=== PATIENT | female | born 2005 | race Two or more races ===

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

== ENCOUNTER 2025-04-05 15:28 | Emergency (ER) | payer OTHER, SELFPAY ==
[2025-04-05 15:42] VITALS: BP 141/85; PULSE 69; RESP 18; TEMP 36.3; O2SAT 99; BMI 22.6
--- NOTE | 2025-04-05 15:45 | ED_ITS ---
HPI - General Adult General Chief complaint: Extremity Injury, Upper Stated complaint: L hand lac Time Seen by Provider: 04/05/25 16:35 Source: patient and family (patient's mother) Mode of arrival: ambulatory Limitations: no limitations History of Present Illness ED Provider: Ashlyn Whyte PA-C HPI narrative: Patient is a 19 year old assigned female at with no reported medical history presenting to the emergency department today with a left hand laceration. Patient states that she was attempting to open a package of chicken with a knife when she accidentally cut her left hand. Patient states that she is not sure when the last time she got her tetanus shot was. Patient denies any other complaints at this time. Related Data Previous Rx's ?Medication ?Instructions ?Recorded amoxicillin 875 mg-potassium 1 tab PO BID 5 days #10 t abs 04/05/25 clavulanate 125 mg tablet Allergies Allergy/AdvReac Type Severity Reaction Status Date / Time No Known Allergies (No Known Allergy Verified 04/05/25 15:45 Allergies*) Review of Systems 2 Constitutional: Constitutional: Reports as per HPI Eyes: Eyes: Reports as per HPI ENT: Reports as per HPI Cardiovascular: Cardiovascular: Reports as per HPI Respiratory: Respiratory: Reports as per HPI Gastrointestinal: Gastrointestinal: Reports as per HPI Genitourinary: Genitourinary: Reports as per HPI Musculoskeletal: Musculoskeletal: Reports as per HPI Integumentary/Breasts: Skin/Breast: Reports as per HPI Neurologic: Reports as per HPI Psychiatric: Psychiatric: Reports as per HPI Endocrine: Endocrine: Reports as per HPI Hematologic/Lymphatic: Hematologic/Lymphatic: Reports as per HPI Allergic/Immunologic: Allergic/Immunologic: Reports as per HPI [facility] Past Medical History Attestation statement: The following information was validated with the patient. (all information validated with the patient's mother) Source: old records reviewed, obtained from family (patient's mother provided additional history and confirmed the history provided by the patient) and nursing notes reviewed Medical History No known health problems Social History Social History Advance Directives: No Advance Directives Information Provided: No Do you have a plan to hurt others: No Plan Physical Exam ED Vital Signs: Vital Signs - 24 hr 04/05/25 15:42 04/05/25 17:10 Temperature 97.4 F 98.6 F Pulse Rate 69 78 Respiratory Rate 18 16 Blood Pressure 141/85 H 109/73 Pulse Oximetry 99 98 Oxygen Delivery Method Room Air Room Air BMI result Body Mass Index 22.6 Const General: cooperative, no acute distress, alert and awake Nutritional Appearance: well nourished Orientation/consciousness: patient oriented x3 HENMT Head: Yes normal to inspection and Yes atraumatic Ears: hearing grossly normal bilaterally and external ears normal General nose exam: Normal external nose present, no nasal discharge noted and no epistaxis Face and sinus: Yes normal facial exam, No abrasion and No laceration Mouth: Normal oral and palatal mucosa present, no drooling and no muffled voice Eyes General: appearance normal, both eyes and all related structures Periorbital: periorbital findings normal Eyelids: Yes eyelids normal Conjunctivae: conjunctivae normal Pupils: Equal, round and reactive pupils present EOM: EOMs intact bilaterally Neck Neck: Yes normal visual inspection and Yes full ROM Resp Effort & Inspection: normal respiratory effort and able to speak in complete sentences Neuro General: patient oriented x3, moves all extremities and CN's II-XI intact bilaterally Cranial nerves: Yes Equal, round and reactive pupils present Cognition (Neuro): normal cognition Extrem Other: General: Yes full ROM and Yes capillary refill normal Psych Appearance: grossly normal Mental Status: mental status grossly normal Affect: normal affect Attitude: cooperative Thought process: Normal thought process present Thought content: Normal thought content present Insight: Good insight present (Psych) Course Course Course Narrative: Rapid medical examination performed in triage by Ashlyn Whyte PA-C: Patient is a 19 year old assigned female at presenting to the emergency department with a left hand laceration. Patient states that she was cutting open a pack of chicken when she cut her left hand. Detailed physical exam and review of systems are deferred to the primary school teacher librarian. Patient placed back in the waiting room pending room availability. Medications Administered Discontinued Medications Generic Name Dose Route Start Last Admin Trade Name Freq PRN Reason Stop Dose Admin Lidocaine/Epinephrine/Tetracaine 1 ml 04/05/25 16:36 04/05/25 16:56 Lidocaine/Racepinep/Tetracaine 3 Ml Gel.Pf.Penny TOPICAL 04/05/25 16:37 1 ml ONCE ONE Administration Procedures Laceration Left hand: Site: hand Side (If applicable): left Size (cm): 2 Description: linear Depth: simple, single layer Local Anesthetic: other anesthetic (LET) Pre-repair: irrigated extensively and deep structures intact Skin layer closed with: Prolene Size (cm): 6-0 Number of sutures: 5 Technique: simple, interrupted Medical Decision Making Medical Decision Making MDM Narrative: Patient is a 19 year old assigned female at with no reported medical history presenting to the emergency department today with a left hand laceration. Patient's physical exam was as noted in the physical exam portion of this note. I explained my physical exam findings to the patient and the patient's mother. I answered all questions asked by the patient and the patient's mother. Patient's left hand laceration was repaired, without incident, per procedure note. Patient's PMS was intact prior to and after laceration repair. Given the mechanism of injury and the location of injury - patient treated with prophylactic antibiotic. I stressed the importance of the patient taking her medication as directed (either prescribed or as the over the counter packaging recommends). I stressed the importance of the patient following up with her primary care provider. I stressed the importance of the patient returning to the emergency department immediately if her symptoms were to worsen or if she were to develop any dizziness, shortness of breath, difficulty breathing, chest pain, blurry vision, loss of vision, nausea, vomiting, abdominal pain, fever, chills, back pain, or any other complaints. Patient and the patient's mother verbalized agreement and understanding with this treatment plan and discharge. Differential Diagnosis Differential Diagnoses: The differential diagnosis associated with the presentation includes Left hand laceration Left hand injury Admission/Observation Consideration of admission/observation: Escalation of care including admission/observation considered Patient would have been admitted to the hospital had her clinical presentation warranted hospital admission. Independent Historian Clinical information obtained from an independent historian. History obtained from or confirmed by: Parent (patient's mother provided additional history and confirmed the history provided by the patient.) Tests considered The following testing was considered but not selected: I considered obtaining an x-ray of the left hand / wrist however, the patient's current clinical presentation and mechanism of injury did not warrant this. Prescription Management I considered prescription management with: Antibiotic (given mechanism of injury and location of injury - patient prescribed a prophylactic antibiotic. ) Discharge Plan Discharge Clinical Impression: Laceration of hand Qualifiers: Encounter type: initial encounter Foreign body presence: without foreign body L aterality: left Qualified Code(s): S61.412A - Laceration without foreign body of left hand, initial encounter Patient Disposition: Home, Self-Care Instructions: Care For Your Stitches (DC), Laceration (DC) Additional Instructions: Your laceration was repaired with (5) sutures. Given the mechanism of injury - you were prescribed a 5 day course of prophylactic antibiotic. Please take this as prescribed and be aware it can cause GI upset as well as make certain controls less effective - so if you are sexually active, use an additional method of contraception. It is normal for the wound to ooze blood over the next few hours. IF the bleeding becomes excessive or you become concerned, please do not hesitate to return to the emergency department. Have these sutures removed in 7-10 days. They can be removed by your primary care provider, at any urgent care by their provider, or at any emergency department by any of their providers. Do NOT soak the affected area. Avoid ALL bodies of water - this including pools, lakes, barrios, oceans, streams, puddles, etc. until your sutures have been removed and the wound has F ULLY healed (no open areas, no scabbing). IF you are concerned about scarring, once the sutures have been removed and the scabbing has fallen away - apply sunscreen to the area every day for 1 full year . IF you are prescribed home medications and/or you are taking over the counter medications at home - it is very important you continue to do so as prescribed / directed unless told otherwise by a healthcare provider. Follow up with your primary care provider. Do your best to stay well hydrated and rest. Return to the emergency department immediately if your symptoms worsen or if you develop any numbness, tingling, dizziness, shortness of breath, difficulty breathing, chest pain, blurry vision, loss of vision, nausea, vomiting, abdominal pain, fever, chills, back pain, or any other complaints. Please see the information below about our Patient Portal. If you are not yet enrolled in the [facility] Patient Portal, you will receive an enrollment email invitation following your visit to any [facility] setting. You may also self-enroll in the Patient Portal by visiting our website: [email or web address] The following information is required to access the Patient Portal: - Your [facility] Medical Record Number - Your personal home email address (must match what is in your electronic medical record, Registration staff can assist with this) - Name - Date of Capabilities of the Patient Portal: - Message some providers - View upcoming appointments - Access your health summary, medical history, and visit history - View current conditions and allergies - View procedure and lab results - View your medications, including guidelines, side effects, and precautions - Complete pre-appointment questionnaires requested by your provider - Ready summary reports of your office visits and procedures To access the Patient Portal Mobile Penny, follow these directions: - Search [employer] in the Penny Store or [employer] Store - Download the Penny - Search for [facility] - Enter your login/password Prescriptions: New amoxicillin-pot clavulanate 875-125 mg tablet 1 tab PO BID 5 Days Qty: 10 0RF Referrals: Kim Kevin NP [Primary Care Provider, Family Practice] Discharge Date/Time: 04/05/25 17:44 Print Language: Puerto Rican
[2025-04-05] MEDS: Lidocaine/Racepinep/Tetracaine 3 ML GEL.PF.APP 1 ML TOPICAL (16:56)
[2025-04-05 17:10] VITALS: BP 109/73; PULSE 78; RESP 16; TEMP 37; O2SAT 98
--- OUTSIDE RECORDS SUMMARY | 2025-04-05 19:55 | XMS_ITS | Clinical Summary ---
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 30 tablet 5 08/17/2023 Active budesonide-form oterol 160-4.5 mcg/actuation inhalerIndicati ons:Subacute cough Inhale 2 puffs into the lungs 2 (two) times a day. 10.2 g 09/23/2023 Active levonorgestrel and ethynyl estradiol (SEASONIQUE) 0.15 mg-30 mcg (84)/10 mcg (7) 3MPk Take 1 tablet by mouth daily. 90 tablet 1 02/07/2024 Active Active Problems Problem Noted Date Diagnosed Date Vaginal itching 02/24/2024 Assessment & Plan (02/24/2024 11:06 AM EDT): Likely a yeast infection secondary to antibiotic use. I have asked her to get a repeat GC to ensure resolution of her prior infection. She understands and agrees. Follow up if symptoms are not improving. Chronic bilateral low back pain without sciatica 02/25/2023 Assessment & Plan (03/11/2023 10:12 AM EST): Leroy notes that the lower back pain has improved-she completed her antibiotics for her recent UTI. I will have her go for a urine check for clearance today and I will update her with the results. She understands and agrees. Assessment & Plan (02/25/2023 1:40 PM EDT): Leroy states that she has ongoing low back pain. I will have her go for an x-ray and I will update her with the results. She has been undergoing some exercises however they have not been helpful. I will also have her go for a further work-up regarding labs as well as a urinalysis with reflex culture. I will update her with the results. Follow-up with PCP if there are any other issues or concerns. Chronic bilateral thoracic back pain 02/25/2023 Assessment & Plan (03/11/2023 10:13 AM EST): Leroy has ongoing thoracic pains. I reviewed her x-ray in the office today showing no abnormalities and I gave her exercises regarding stretches and strengthening of the paraspinal musculature to be done at home at least 3 days a week and hopefully 4 days a week. I also gave guidance regarding hydration with water and heat to the site. She will call if this gets worse or if there are any other issues or concerns. She understands and agrees. Assessment & Plan (02/25/2023 1:40 PM EDT): Leroy has ongoing mid back pain. I will further work this up with diagnostic test-x-rays as well as labs and urinalysis with culture. I will update her with the results. I advised her to call if this gets worse or if there are any other issues or concerns. She understands and agrees. Annual physical exam 06/16/2022 Assessment & Plan (02/07/2024 1:57 PM EDT): No concerning findings on exam, follow up in 1 year, sooner for acute concerns. She would like to get STD and tests now that she has been sexually active. Couseled about safe sex practices. She would like to start control. Had been given it a year ago but never started. We discussed options, risk/benefits, and methods. She would like the 3 month OPC. Discussed quick start and cycle start options. She will follow up with concerns. Assessment & Plan (06/16/2022 4:55 PM EST): Ana Vee is a 16 y.o. year old female presenting for their annual well child check. I reviewed the electronic health form filled out. Routine guidance was given. They will follow up in a year for their annual well child check. Personal history of COVID-19 02/06/2021 Primary insomnia 03/28/2018 Overview (03/28/2018): Followed at [facility] Assessment & Plan (08/17/2023 3:18 PM EDT): Leroy has ongoing insomnia-I refilled her amitriptyline at today's visit. She has that this is helpful. I wrote a letter for school as well stating that she has insomnia. Follow-up as needed. She understands and agrees. Assessment & Plan (10/21/2021 9:07 AM EDT): Leroy notes that the amitriptyline 50 mg works a little too well. I dialed this back down to 25 mg once at night as needed. Guidance given. She will call if there are any other issues or concerns. This med was sent into her pharmacy today. She will call if there are any other issues or concerns. Assessment & Plan (09/23/2021 9:58 AM EDT): Leroy continues to have issues with sleep however she did sleep better on 30 mg. Increase this to 50 mg at night-once a night and to call if there are any issues or concerns with this or side effects-she has not had any side effects thus far. Follow-up in a month. She will call if there are any other issues or concerns. She understands and agrees. Assessment & Plan (08/26/2021 3:05 PM EDT): Leroy continues to have issues with insomnia. She does not have a sleep routine yet but we did discuss this and we talked about healthy ways to help with sleep and getting her body ready for sleep- I informed her to not eat big meals 2 hours before going to bed and no electronics an hour before bedtime. I did inform her that reading a book might be a good idea. I reviewed her previous medications for this and she has not tried amitriptyline yet. We start this medication 1 tablet at night-side effects discussed. Follow-up in a month. She will call if there are any other issues or concerns. She understands and agrees. Resolved Problems Problem Noted Date Diagnosed Date Resolved Date Subacute cough 09/23/2023 02/07/2024 Assessment & Plan (09/23/2023 5:19 PM EDT): Leroy presents for a cough-starting 2 weeks ago. I suspect a viral upper respiratory infection-I wrote for a steroid-based inhaler after listening to her lungs today-all around tight. Advised her to rinse her mouth out with a salt water rinse after each use. I informed her to call if this is not improving at which point I would order an x-ray for further investigation. I advised her to stop smoking/vaping. I informed her to call if there are any other issues or concerns. She understands and agrees. Sore throat 09/23/2023 02/07/2024 Assessment & Plan (09/23/2023 5:19 PM EDT): Leroy presents with a sore throat mainly from the cough. Her rapid strep test was negative today in the office. Please see plan call for further guidance. Generalized abdominal pain 08/17/2023 1 Assessment & Plan (08/17/2023 3:19 PM EDT): Leroy presents with generalized abdominal pain-nausea vomiting, decreased p.o. intake. I will investigate this with labs and I will update her with the results. Also ordered an ultrasound. I informed her to call if her symptoms get worse or if there are any other issues or concerns. I gave guidance regarding hydration and certain foods. Follow-up with PCP as needed. She understands and agrees. Nausea and vomiting 08/17/2023 02/07/20 24 Assessment & Plan (08/17/2023 3:19 PM EDT): Leroy presents for intermittent nausea and vomiting. Is been going on more recently. I ordered lab work today and I will update her with results. I also ordered a an ultrasound to rule out appendicitis. I informed her to call if there are any other issues or [id number] with PCP as needed. She understands and agrees. Subacute cough 02/25/2023 09/23/2023 Assessment & Plan (02/25/2023 1:38 PM EDT): Leroy presents for an ongoing cough. She was diagnosed with the flu earlier this week-Tuesday. Her symptoms are overall improving but she still continues to have a cough. Her lung sounds are normal. I wrote for Moises Rocha-to be taken as directed. She will call if her symptoms get worse or if there are any other issues or concerns. I wrote a letter for her school today. She understands and agrees. Influenza 02/25/2023 02/07/2024 Assessment & Plan (02/25/2023 1:39 PM EDT): Leroy was diagnosed with the flu this past Tuesday. She is overall feeling a little better but she still has a cough. I wrote a letter for school. Follow-up with the symptoms worsen or if they do not improve. She understands and agrees. Syncope and collapse 11/30/2022 Assessment & Plan (11/30/2022 3:34 PM EDT): Leroy presents with her mom for an episode of syncope and collapse this past Tuesday. She informs me that she is not eating throughout the day but only eats at night. I advised her to eat 3 square meals a day with snacks in between and to stay well-hydrated. I will be trying to obtain the labs and EKG done at [facility] but I and not able to see them today. I ordered repeat lab work to be done if her symptoms do not improve by next week. She will call if there are any other issues or concerns. She understands and agrees. Other fatigue 06/16/2022 02/07/2024 Assessment & Plan (06/16/2022 5:12 PM EST): Leroy has been having more fatigue recently. We did discuss nutrition in the office today. I will have him go for above lab work and I will update him with the results. She will call if there are any other issues or concerns. She understands and agrees. OCP (oral contraceptive pills) initiation 06/16/2022 02/07/2024 Assessment & Plan (06/16/2022 5:12 PM EST): Leroy is thinking about intercourse but she has not had intercourse yet. She would like to be on something to help prevent a . I wrote for the above OCP- to be taken as directed. Guidance given. Side effects discussed. She will call if there are any issues or concerns. She notes that she will be talking with her dad about this as she feels more comfortable talking to him about this and her mom. I did advise open communication as best. I also gave guidance regarding safe sexual practices with condoms to help decrease STDs. She will call if there are any other issues or concerns. She understands and agrees. Right shoulder strain, initial encounter 10/21/2021 02/07/2024 Assessment & Plan (10/21/2021 9:06 AM EDT): Leroy presents for right shoulder strain and I gave her exercises to start on in the office. I also gave her guidance regarding heat and to stay well-hydrated. She will take Tylenol/Motrin-with guidance- as needed. She will call if there are any other issues or concerns. She understands and agrees. Screening for condition 09/23/2021 1012/2023 Assessment & Plan (11/30/2022 3:35 PM EDT): Leroy is due for lab work-she will get this done and I will update her with the result. Assessment & Plan (09/23/2021 9:58 AM EDT): Leroy is due for a GC/chlamydia urine screen and she will get this done today-I will update her with the results. She understands and agrees. Need for meningococcus vaccine 09/23/2021 02/07/2024 Assessment & Plan (09/23/2021 9:58 AM EDT): Leroy is due for a meningitis vaccine-this was done today in the office as her mom and the patient were agreeable. No complications. Sprain of anterior talofibul ar ligament of left ankle 02/13/2021 04/22/2021 Assessment & Plan (03/11/2021 4:23 PM EST): Leroy was diagnosed with a sprain of the left ankle. This is the third time she sprained his ankle this year. Guidance given. I put a referral into PT. Her mom notes that she had an x-ray done at [facility] and was negative. I wrote a note for gym to be out for the next week and a half. She will wear her brace as directed. I also gave guidance regarding rice therapy. She will call if there is any other issues or concerns. She understands and agrees. Assessment & Plan (02/13/2021 3:56 PM EDT): Leroy had a second fall and twisted her left ankle 2 days after the initial this past Tuesday. I informed her that the ankle is sprained and I advised her to undergo some exercise-I copied and gave her some printouts of what she should be doing. She notes that she went to [facility] this past Tuesday and had x-rays and there is no fracture noted. She is wearing a brace and I advised her to use this until the weekend and then she is slowly wean out of this. She will call if things get worse or if this does not improve. She understands and agrees. Acute midline thoracic back pain 08/20/2020 04/22/2021 Assessment & Plan (08/20/2020 10:32 AM EDT): Leroy presents for upper back pain. This is likely secondary to stress-versus a musculoskeletal strain. I gave her guidance in the office. She was given paperwork for stretching exercises to be performed and I also advised for heat, NSAID use as needed, and to hydrate with water. I put an order in for an x-ray to evaluate the thoracic spine. I will update her with results. She will call if there is no improvement in the next few weeks. Or if things get worse. She understands and agrees. Encounters Date Type Department Care Team Description 04/01/2025 [facility] RISK SCORES SYSTEM GENERATED External System Generated Encounter [id number] [place] [id number] Unknown, Unknown, 01/28/2025 [facility] RISK SCORES SYSTEM GENERATED External System Generated Encounter [id number] [place] [id number] Unknown, Unknown, from Last 3 Months Immunizations Immunization Administration Dates Next Due DTaP 02/17/2010,04/27/2007 DTaP-Hep B-IPV 02/17/2006,2005,2005 HPV9 03/28/2018,03/21/2017 Hepatitis A, ped/adol, 2 dose 09/26/2008, 008 Hib, unspecified formulation 12/15/2006, 02/17/2006,2005,09/14 INFLUENZA, SPLIT VIRUS, TRIVALENT PF 02/07/2024 INFLUENZA, SPLIT VIRUS, TRIV ALENT W/ PRESERVATIVE IM 02/18/2016,07/17/2013,03/15/2012,01/26 IPV 02/17/2010 Influenza Quadrivalent MDCK w/Preservative IM 02/17/2019 Influenza Quadrivalent Pedia tric Preservative Free IM 04/16/2020 Influenza Quadrivalent Prese rvative Free IM 02/06/2021 Influenza Quadrivalent w/ Pr eservative IM 03/28/2018,02/09/2017,01/23/2014 Influenza Split (Incl. Purif ied Surface Antigen) 02/05/2009,02/24/2007,04/11/2006,02/17 Influenza quadrivalent nasal 01/29/2015 Influenza, whole 02/17/2010 MMR 02/23/2011,12/15/2006 Meningococcal MCV4P 09/23/2021,03/21/2017 Pneumococcal conjugate, PCV 7 12/15/2006 ,02/17/2006,2005,09/14 Polio, Unspecified Formulation 08/18/2006 Tdap 03/28/2018 Varicella 02/23/2011,08/18/2006 Family History Medical History Relation Comments Bipolar disorder Father Krtxojj-Ahngv-Pjdjp disease Maternal Grandmother Relation Status Comments Father Alive Maternal Grandmother Alive Mother Alive Social History Tobacco Use Types Packs/Day Years Used Date Smoking Tobacco: Unknown Smokeless Tobacco: Never Tobacco Cessation:Counseling Given: Not Answered Comments:Vaping daily Alcohol Use Standard Drinks/Week Comments Not Currently 0 (1 standard drink = 0.6 oz pur e alcohol) Child or Family Care Answer Date Record ed Do you have problems with on e of the following making it difficult for you to work, study, or receive health care? No 02/07/2024 Education Answer Date Recorded Are you interested in more education? Not on annemarie e 02/07/2024 Are you concerned about your learning, performance, or behavior in school? No 02/07/2024 No 02/07/2024 Yes 02/07/2024 Food Answer Date Recorded Within the past 6 months we worried whether our food would run out before we got money to buy more. Never True 02/07/2024 Within the past 6 months the food we bought just didn't last and we didn't have enough money to get more. Never True Residential Stability Answer Date Recor ded What is your housing situation today? I have chavez longo 02/07/2024 How many times have you move d in the past 12 months? Zero (I did not move) 02/07/2024 Paying for Meds Answer Date Recorded Do you have trouble paying for medicines? No 02/07/2024 Paying Utility Bills Answer Date Record ed Do you have trouble paying your heating or elect ricity bill? No 02/07/2024 Transportation Answer Date Recorded Has the lack of transportati on kept you from medical appointments or from getting medications? No 02/07/2024 Unemployment Answer Date Recorded Are you currently unemployed or working on a part-time or temporary basis, and looking for work? I choose not to answer 04/22/2021 Digital Access Answer Date Recorded No 02/07/2024 Yes 02/07/2024 Do you have reliable internet access at home? Ye s 02/07/2024 Do you have a device (e.g., phone, tablet, computer) with a working camera? Yes 02/07/2024 SNAP & WIC Answer Date Recorded Do you receive benefits from SNAP (the Supplemental Nutrition Assistance Program) or the Food Stamp Program? No 02/07/2024 SNAP is a free program that can help you and your family get access to healthy foods, nutrition classes, utility discounts, and more. Would you be interested in learning more? No 02/07/2024 Can we help you enroll in SNAP? Not on file 02/07/2024 Benefits received from WIC? Not on file 12/2023 WIC is a free program, interested in learning mo re? Not on file 02/07/2024 Can we help you enroll in WIC? Not on file 1 Comments Unknown Sex and Gender Information Value Date Recorded Sex Assigned at Not on file Legal Sex Female 4:46 PM EDT Gender Identity Not on file Sexual Orientation Not on file Last Filed Vital Signs Vital Sign Reading Time Taken Comments Blood Pressure 102/58 02/24/2024 10:27 AM EDT Pulse 62 02/24/2024 10:27 AM EDT Temperature 36.5 C (97.7 F) 02/24/2024 10:27 AM EDT Respiratory Rate 16 01/11/2024 9:38 AM EDT Oxygen Saturation 98% 02/24/2024 10:27 AM EDT Inhaled Oxygen Concentration - - Weight 47.6 kg (105 lb) 02/24/2024 10:27 AM EDT Height 154.9 cm (5' 1 ) 02/07/2024 1:22 PM EDT Body Mass Index 19.84 02/07/2024 1:22 PM EDT Body Mass Index Percentile 28.31% 02/24/2024 10: 27 AM EDT Growth Chart: CDC (Girls, 2- 20 Years) Plan of Treatment Health Maintenance Due Date Last Done Comments SMOKING Hx and SMOKELESS TOBACCO SCREENING 2018 MENINGOCOCCAL VACCINES (B) (1 of 2 - Standard) 2021 INFLUENZA VACCINE (#1) 2024 , 02/06/2021, 04/16/2020, Additional history exists COVID-19 VACCINE ( season) 2024 09/13/2021, 08/23/2021 DEPRESSION SCREENING 02/06/2025 02/07/2024, 12/01/19 DEVELOPMENTAL/BEHAVIORAL SCREENING (PHQ, PSC, or SWYC) 02/06/2025 02/07/2024, 11/30/2022 BMI ASSESSMENT 02/23/2025 02/24/2024 CHLAMYDIA SCREENING 02/23/2025 02/24/2024, 02/07/2024, 01/11/2024, Additional history exists COMBINED DTaP,Tdap,Td (7 - Td or Tdap) 03/28/2028 03/28/2018, 02/17/2010, 04/27/2007, Additional history exists HEPATITIS B VACCINES Completed 02/17/2006, 2005, 2005 HIB VACCINES Completed 12/15/2006, 01/30, 2005, Additional history exists PNEUMOCOCCAL VACCINES (0-49 years) Aged Out 12/15/2006, 02/17/2006, 2005, Additional history exists No longer eligible based on patient's age to complete this topic HEPATITIS A VACCINES Completed 09/26/2008, 09/21/19 MMR VACCINES Completed 02/23/2011, 12/15/2006 VARICELLA VACCINES Completed 02/23/2011, 08/18/2006 HPV VACCINES Completed 03/28/2018, 03/21/2017 MENINGOCOCCAL VACCINES (ACWY) Completed 09/23/2021, 03/21/2017 ADOLESCENT UNIVERSAL LIPID SCREENING Completed 02/25/2023 HEPATITIS C SCREENING Completed 02/07/2024 HIV ONE-TIME SCREENING (18-65 YEARS) Completed 02/07/2024 Medical Devices Not on file Procedures Procedure Name Priority Date/Time Associated Diagnosis Comments CHLAMYDIA TRACHOMATIS AND NEISSERIA GONORRHOEAE NUCLEIC ACID DETECTION Routine 02/24/2024 11:08 AM EDT Chlamydia HEPATITIS C ANTIBODY, QUALITATIVE Routine 02/07/2024 2:09 PM EDT Need for hepatitis C screening test LIPID PANEL Routine 02/25/2023 2:59 PM EDT Screening for condition from Last 3 Months or Most Recently Relevant to Health Maintenance Results * Chlamydia Trachomatis and Neisseria Gonorrhoeae Nucleic Acid Detection (02/24/2024 11:08 AM EDT) CHLAMYDIA TRACHOMATIS Not Detected Not Detected [facility] NEISERIA GONORRHOEAE Not Detected Not Detected [facility] SPECIMEN TYPE URINE [facility] Urine (Urine) 02/24/2024 11: 08 AM EDT 02/24/2024 11:09 AM EDT [facility] GENERAL ORDERABLES F inal Result Performing Organization Address [facility]/ZIP Co de Phone Number [address] [address] * Hepatitis C antibody, qualitative (02/07/2024 2:09 PM EDT) HCV NON-REACTIV E NON-REACTI VE [facility] Blood 02/07/2024 2:09 PM EDT 02/07/2024 2:13 PM EDT [facility] BLOOD BKR ORDERABLES Final Result Performing Organization Address [facility] Co de Phone Number [address] [address] * Lipid panel (02/25/2023 2:59 PM EDT) HDL 38 mg/dL [facility] Comment: Interpretation <40 mg/dL: Low HDL cholesterol (major risk factor for CHD) Greater than or equal to 60 mg/dL: High HDL cholesterol ( negative risk factor for CHD) HDL - cholesterol is affected by a number of factors, e.g. smoking, excerise, hormones, sex and age. CHOLESTEROL 141 0 - 169 mg/dL [facility] Comment: Pediatric Reference Ranges for 2 to 18 years Acceptable: Less than 170 mg/dL Borderline: 170 - 199 mg/dL High: Greater than or equal to 200 mg/dL TRIGLYCERIDES 95 30 - 160 mg/dL [facility] LDL 84 50 - 129 mg/dL [facility] Comment: LDL levels in terms of risk for coronary heart disease: <100 mg/dL: Optimal 100-129 mg/dL: Near or above optimal 130-159 mg/dL: Borderline high 160-189 mg/dL: High >190 mg/dL: Very High CARDIAC RISK RATIO 3.7 3.3 - 4.4 [facility] Blood 02/25/2023 2:59 PM EDT 02/25/2023 3:08 PM EDT us Claudio Camara DO LAB BLOOD BKR ORDERABLES Final R esult [facility] [address] [place], [place] [phone] from Last 3 Months or Most Recently Relevant to Health Maintenance Insurance [facility] [place] [id number] [facility] [place] [id number] Care Teams 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 It is not the complete legal health record.[facility]
== END 2025-04-05 17:44 | disposition home or self-care (01) ==
PROVIDERS: Emergency Provider Student in an Organized Health Care Education/Training Program; PCP Nurse Practitioner Primary Care
DX: S61.412A Laceration without foreign body of left hand, initial encounter (principal); M79.642 Pain in left hand; W26.0XXA Contact with knife, initial encounter; Y93.9 Activity, unspecified; Y92.9 Unspecified place or not applicable; Y99.8 Other external cause status; Z23 Encounter for immunization
CPT/HCPCS: 12001; 90471; 99283; 99284